=== PATIENT | male | born 1945 | race Caucasian/White ===

== ENCOUNTER 2020-08-24 12:34 | Inpatient (IN) | payer OTHER ==
[~2020-08-24] VITALS: Ht 182.9 cm; Wt 109.0 kg
[2020-08-24 12:41] VITALS: BP 145/89
[2020-08-24 13:19] LABS: HEMATOCRIT 41.2 % (42.0-52.0); HEMOGLOBIN 14.1 gm/dL (14.0-18.0); MCHC 34.3 g/dL (28.0-37.0); MCV 87.4 fL (80.0-100.0); MPV 9.3 fl. (7.2-11.1); NUCLEATED RBCS 0 /100WBC; PLATELET COUNT* 101 thou/uL (150-400); RBC 4.71 mil/uL (4.50-6.00); WBC 15.6 thou/uL (4.0-11.0)
[2020-08-24 13:25] LABS: CALCIUM 8.6 mg/dL (8.5-10.1); CREATININE 1.4 mg/dL (0.6-1.3); POTASSIUM 4.8 mmol/L (3.5-5.1)
[2020-08-24 13:28] LABS: APTT 34.3 Seconds (25.0-31.3); INR 1.2; PROTIME 12.4 Seconds (9.20-11.50)
[2020-08-24 13:29] LABS: ALBUMIN 3.7 g/dL (3.4-5.0); TOTAL BILIRUBIN 1.4 mg/dL (<0.1-1.0); TOTAL PROTEIN 7.4 g/dL (6.4-8.2)
[2020-08-24] MEDS ORDERED: CELEXA 20 MG TA20 MG PO (13:33)
[2020-08-24] MEDS ORDERED: LOPRESSOR50 MG PO (13:34)
[2020-08-24] MEDS ORDERED: PROAIR HFA8.5 GM INH (13:35)
[2020-08-24] MEDS ORDERED: LIPITOR80 MG PO (13:35)
[2020-08-24] MEDS ORDERED: STIOLTO RESPIMAT4 GM INH (13:36)
[2020-08-24] MEDS ORDERED: COMPAZINE10 MG PO (13:36)
[2020-08-24] MEDS ORDERED: FISH OIL 1,001000 M3 PO (13:37)
[2020-08-24] MEDS ORDERED: SUPER THERAVIT1 EACH PO (13:37)
[2020-08-24 13:47] LABS: ABSOLUTE LYMPHOCYTES 0.6 thou/uL (0.8-5.3); ABSOLUTE MONOCYTES 0.2 thou/uL (0.0-1.2); ABSOLUTE NEUTROPHILS 14.8 thou/uL (1.6-8.1); METAMYELOCYTES 2 %; PLATELET ESTIMATE ADEQUATE
[2020-08-24 14:01] LABS: BE -2.7 mmol/L (-2 to +3); PCO2 34.4 mmHg (35.0-45.0); pH 7.408 (7.340-7.450)
[2020-08-24 14:02] LABS: PO2 52.4 mmHg (75.0-100.0)
--- NOTE | 2020-08-24 14:35 | EKG ---
[place] [address] ELECTROCARDIOGRAM REPORT Name: MICHAEL LAWRENCE Room: [place] [address] [facility]#: [id number] Admission: 08/24/20 Attend Phys: Bonita Diaz, Discharge: Date of : 45 Date of Service: 08/24/20 1240 Report #: [id number] THIS REPORT FOR: //name// 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: ALIDA : 1945 Requested By: Bonita Diaz Order Number: [id number] MD: Roderick Francis Measurements Intervals [place] Rate: 103 P: 84 ME: 171 QRS: 111 QRSD: 90 T: -6 QT: 339 QTc: 444 Interpretive Statements Sinus tachycardia Right axis deviation Consider right ventricular hypertrophy Nonspecific ST-T abnormalities inferior leads No previous ECG available for comparison Electronically Signed On 08-24-2020 14:35:42 CDT by Roderick Francis [email or web address] <ELECTRONICALLY SIGNED> By: Roderick Francis MD, [facility] 08/24/20 1435 1240 1240 Roderick Francis MD, [facility] /EPI
[2020-08-24 16:57] VITALS: BP 141/66
[2020-08-24 18:16] LABS: BE -3.2 mmol/L (-2 to +3); PO2 66.2 mmHg (75.0-100.0); pH 7.379 (7.340-7.450)
[2020-08-24 20:03] VITALS: BP 111/58
[2020-08-24 21:00] VITALS: BP 103/55
[2020-08-24 22:00] VITALS: BP 100/51
[2020-08-24 23:00] VITALS: BP 89/48
[2020-08-25] VITALS (22 sets, daily range): BP systolic 94–134; BP diastolic 41–86
[2020-08-25] MEDS ORDERED: ENOXAPARIN100 MG/11 SUBQ (03:24)
[2020-08-25 05:41] LABS: ABSOLUTE LYMPHOCYTES 0.2 thou/uL (0.8-5.3); ABSOLUTE MONOCYTES 0.1 thou/uL (0.0-1.2); ABSOLUTE NEUTROPHILS 12.7 thou/uL (1.6-8.1); BASOPHILS 0.1 %; HEMATOCRIT 36.2 % (42.0-52.0); HEMOGLOBIN 12.5 gm/dL (14.0-18.0); LYMPHOCYTES 1.5 %; MCH 30.3 pg (26.0-34.0); MCHC 34.6 g/dL (28.0-37.0); MCV 87.6 fL (80.0-100.0); MONOCYTES 0.4 %; MPV 9.4 fl. (7.2-11.1); NUCLEATED RBCS 0 /100WBC; PLATELET COUNT* 76 thou/uL (150-400); RBC 4.13 mil/uL (4.50-6.00); RDW-CV 19.1 % (10.5-14.5)
[2020-08-25 06:00] LABS: ALBUMIN 3.1 g/dL (3.4-5.0); CALCIUM 7.6 mg/dL (8.5-10.1); CREATININE 1.3 mg/dL (0.6-1.3); MAGNESIUM 2.3 mg/dL (1.8-2.4); POTASSIUM 4.9 mmol/L (3.5-5.1); TOTAL BILIRUBIN 1.4 mg/dL (<0.1-1.0); TOTAL PROTEIN 6.5 g/dL (6.4-8.2)
[2020-08-25 06:02] LABS: INR 1.3; PROTIME 13.3 Seconds (9.20-11.50)
--- NOTE | 2020-08-25 06:14 | NUR ---
ASSUMED CARE AT 1910H, ON HIFLOW NC AT 6LPM AND NRB MASK WITH O2 SAT AT 90%. PT IS RESTLESS AND IN PAIN AT CHEST TUBE SITE, PRN MED GIVEN. INFORM PULMO REGARDING NO FLACTUATION FROM CHEST TUBE DRAINAGE, STAT CXR DONE WITH NO SIGNIFICANT CHANGES. INCREASED HIFLOW TO 15LPM AND REMOVED MASK. 02 SAT LOW AND CHANGE TO HEATED HIGH FLOW. PULMO AWARE WITH ORDERS MADE AND CARRIED OUT. PT WILL DESAT WHEN MOVING AND RECOVER SLOW. WITH SLIGHT SATURATED DRESSING FROM CHEST TUBE SITE, DRESSING CHANGES. CONTINUE MONITORING AND TOWARDS GOALS.
--- NOTE | 2020-08-25 06:51 | NUR ---
NOTE FROM 08/24/20: PT ADMITTED TO UNIT AT 17:15. O2 SATS IN THE 80'S ON 6LPM. SWITCHED PT TO HFNC AND NRB. PT CHEST TUBE DRESSING WAS FALLING OFF AT TIME OF ARRIVAL. RE-DRESSED CHEST TUBE SITE, STILL NO TIDAL, NO BUBBLING. NO BLEEDING NOTICED AT THAT TIME. WILL CONTINUE TO MONITOR.
[2020-08-25 14:13] LABS: BE -4.7 mmol/L (-2 to +3); PCO2 36.7 mmHg (35.0-45.0); PO2 65.5 mmHg (75.0-100.0); pH 7.357 (7.340-7.450)
[2020-08-25 17:10] LABS: CALCIUM 7.9 mg/dL (8.5-10.1); CREATININE 1.5 mg/dL (0.6-1.3); MAGNESIUM 2.3 mg/dL (1.8-2.4); POTASSIUM 4.8 mmol/L (3.5-5.1)
[2020-08-25 18:06] LABS: ABSOLUTE LYMPHOCYTES 0.2 thou/uL (0.8-5.3); ABSOLUTE MONOCYTES 0.2 thou/uL (0.0-1.2); ABSOLUTE NEUTROPHILS 15.6 thou/uL (1.6-8.1); BASOPHILS 0.1 %; LYMPHOCYTES 1.4 %; MCH 30.1 pg (26.0-34.0); MCHC 34.3 g/dL (28.0-37.0); MCV 87.7 fL (80.0-100.0); MONOCYTES 1.4 %; MPV 9.6 fl. (7.2-11.1); NUCLEATED RBCS 0 /100WBC; PLATELET COUNT* 94 thou/uL (150-400); POLYS 97.1 %; RDW-CV 18.8 % (10.5-14.5); WBC 16.1 thou/uL (4.0-11.0)
[2020-08-26] VITALS (19 sets, daily range): BP systolic 85–130; BP diastolic 41–66
--- NOTE | 2020-08-26 04:18 | NUR ---
ASSUMED CARE AT 1910H, ON HEATED HIFLOW 100% AT 50LPM AND TOLERATED BUT STILL WITH DESATURATION WHEN MOVING OR IN PAIN. NO FEVER AND NO BLEEDING NOTED. HEATED HIFLOW DOWN TO 90%. CHEST TUBE WITH MINIMAL OUTPUT. COMPLAINED OF PAIN, PRN MEDS GIVEN. CONTINUE MONITORING AND TOWARDS GOALS.
--- NOTE | 2020-08-26 12:10 | NUR ---
ASSUMED CARE OF PT AT THIS TIME.
[2020-08-26 13:05] LABS: ABSOLUTE BASOPHILS 0.1 thou/uL (0.0-0.2); ABSOLUTE LYMPHOCYTES 0.3 thou/uL (0.8-5.3); ABSOLUTE MONOCYTES 0.4 thou/uL (0.0-1.2); ABSOLUTE NEUTROPHILS 11.2 thou/uL (1.6-8.1); BASOPHILS 1.2 %; HEMATOCRIT 32.5 % (42.0-52.0); HEMOGLOBIN 11.3 gm/dL (14.0-18.0); LYMPHOCYTES 2.3 %; MCH 30.2 pg (26.0-34.0); MCHC 34.6 g/dL (28.0-37.0); MCV 87.1 fL (80.0-100.0); MPV 8.8 fl. (7.2-11.1); NUCLEATED RBCS 0 /100WBC; PLATELET COUNT* 98 thou/uL (150-400); POLYS 93.5 %; RBC 3.74 mil/uL (4.50-6.00); RDW-CV 18.4 % (10.5-14.5)
[2020-08-26 13:19] LABS: ALBUMIN 3.1 g/dL (3.4-5.0); CALCIUM 7.7 mg/dL (8.5-10.1); CREATININE 1.3 mg/dL (0.6-1.3); POTASSIUM 4.3 mmol/L (3.5-5.1); TOTAL PROTEIN 6.3 g/dL (6.4-8.2)
--- NOTE | 2020-08-26 15:30 | NUR ---
CAME AND TALKED WITH PT TODAY.
--- NOTE | 2020-08-26 15:57 | NUR ---
ENCOURAGED PT TO USE INSENTIVE SPIROMETRY. GETTING UP TO 1000 FIRST COUPLE OF TIMES THEN TO 500 REST OF REPS. PT REFUSED TO COUGH FOR ME HE STATED 'IT HURTS TO MUCH'. ENCOURAGED THE USE OF I.S. SO HE DOESN'T GET PNEUMONIA. PT VERBALIZED UNDERSTANDING.
--- NOTE | 2020-08-26 20:01 | NUR ---
A&OX 4, PWD. ON HEATED HF AT 65% FIO2 AT 45L. PT TOLERATING IT WELL. CHEST TUBE TO -30. 4ML OUT PUT. LUNGS DIMINISHED THOUGHOUT.REGULAR HEART TONES. SR ON MONITOR. INDWELLING SHER CATH INTACT AND PATENT OF CLOUDY CONCENTRATED URINE. 505ML OUT IN SHER. IV LEFT HAND AND LEFT FA INTACT AND PATENT. NO C/O PAIN. HERE FOR SHORT TIME THIS AFTERNOON. OCC. DESAT'S INTO 80'S WHEN TURNED OR WHEN EATING. ENCOURAGED DEEP BREATHING AND SAT'S CAME BACK UP. ALSO HAD TO ENCOURAGE USING I.S. GETTING IT UP TO 1000 A COUPLE OF TIMES THEN 500. WILL CONTINUE WITH PLAN OF CARE.
[2020-08-27] VITALS (23 sets, daily range): BP systolic 81–136; BP diastolic 46–79
--- NOTE | 2020-08-27 05:42 | NUR ---
ASSUMED CARE AT 2010H, ON OPTI FLOW AT 45LPM AND ON 70% AND TOLERATED. STILL WITH EPISODE OF DESATURATION. CHEST TUBE STILL WITH AIR LEAK. COMPLAIN OF PAIN, PRN MED GIVEN. CONTINUE MONITORING AND TOWARDS GAOLS.
[2020-08-27 13:01] LABS: ABSOLUTE LYMPHOCYTES 0.3 thou/uL (0.8-5.3); ABSOLUTE MONOCYTES 0.6 thou/uL (0.0-1.2); ABSOLUTE NEUTROPHILS 12.5 thou/uL (1.6-8.1); BASOPHILS 0.1 %; HEMATOCRIT 35.8 % (42.0-52.0); HEMOGLOBIN 11.8 gm/dL (14.0-18.0); LYMPHOCYTES 2.5 %; MCH 30.1 pg (26.0-34.0); MCHC 32.9 g/dL (28.0-37.0); MCV 91.7 fL (80.0-100.0); MONOCYTES 4.7 %; MPV 8.9 fl. (7.2-11.1); NUCLEATED RBCS 0 /100WBC; PLATELET COUNT* 129 thou/uL (150-400); POLYS 92.7 %; RDW-CV 18.9 % (10.5-14.5); WBC 13.5 thou/uL (4.0-11.0)
[2020-08-27 13:14] LABS: CALCIUM 7.9 mg/dL (8.5-10.1); MAGNESIUM 2.7 mg/dL (1.8-2.4); POTASSIUM 4.5 mmol/L (3.5-5.1)
--- NOTE | 2020-08-27 13:39 | 2DMMODE ---
[place] [address] 2 D/M-MODE ECHOCARDIOGRAM Name: MICHAEL LAWRENCE Room: [address] IN [facility]#: [id number] Admission: 08/24/20 Attend Phys: Bonita Diaz, Discharge: Date of : 45 Date of Service: 08/27/20 1338 Report #: [id number] THIS REPORT FOR: cc: [facility] - Clinic physician unknown [facility] - Clinic physician unknown Arron Kearney MD [facility] ~ APPROVED REPORT Study performed: 08/27/2020 09:50:04 EXAM: Comprehensive 2D, Doppler, and color-flow Echocardiogram Patient Location: In-Patient Room #: [facility] Status: routine BSA: 2.15 HR: 63 bpm BP: 119/65 mmHg Rhythm: NSR Other Information Study Quality: Good Indications Dyspnea 2D Dimensions IVSd: 8.96 (7-11mm) LVOT Diam: 20.84 (18-24mm) LVDd: 44.32 mm PWd: 7.60 (7-11mm) Ascending Ao: 34.50 (22-36mm) LVDs: 23.71 (25-40mm) Aortic Root: 36.94 mm Aortic Valve AoV Peak Lucian.: 0.86 m/s AO Peak Gr.: 2.93 mmHg LVOT Max P.90 mmHg AO Mean Gr.: 1.66 mmHg LVOT Mean P.95 mmHg LVOT Max V: 0.69 m/s AO V2 VTI: 17.29 cm LVOT Mean V: 0.46 m/s KWAN (VTI): 2.98 cm2 LVOT V1 VTI: 15.08 cm Mitral Valve E/A Ratio: 0.78 MV Decel. Time: 236.20 ms MV E Max Lucian.: 0.90 m/[place] [address] 2 D/M-MODE ECHOCARDIOGRAM Name: MICHAEL LAWRENCE Room: [address] IN ..#: [id number] Admission: 08/24/20 Attend Phys: Bonita Diaz, Discharge: Date of : 45 Date of Service: 08/27/20 1338 Report #: [id number] MV PHT: 68.50 ms MVA (PHT): 3.21 cm2 TDI E/Lateral E': 10.00 E/Medial E': 12.86 Medial E' Lucian.: 0.07 m/s Lateral E' Lucian.: 0.09 m/s Pulmonary Valve PV Peak Lucian.: 0.70 m/s PV Peak Gr.: 1.94 mmHg Tricuspid Valve RAP Estimate: 5.00 mmHg TR Peak Gr.: 59.29 mmHg RVSP: 64.00 mmHg PA Pressure: 64.00 mmHg Left Ventricle The left ventricle is normal size. There is normal LV segmental wall motion. There is normal left ventricular wall thickness. Left ventricular systolic function is normal. The left ventricular ejection fraction is within the normal range. LVEF is 55-60%. Grade I - abnormal relaxation pattern. Right Ventricle The right ventricle is normal size. The right ventricular systolic function is normal. Atria Left atrium is mildly dilated. Right atrium is dilated. Aortic Valve Mild aortic valve sclerosis. No aortic regurgitation is present. There is no aortic valvular stenosis. Mitral Valve The mitral valve is normal in structure. There is no mitral valve regurgitation noted. No evidence of mitral valve stenosis. Tricuspid Valve The tricuspid valve is normal in structure. Mild tricuspid regurgitation. estimated pa pressure 65 mm Hg Pulmonic Valve The pulmonary valve is normal in structure. There is no pulmonic [place] [address] 2 D/M-MODE ECHOCARDIOGRAM Name: HOWARDMICHAEL Anne Marie Room: [address]#: [id number] Admission: 08/24/20 Attend Phys: Bonita Diaz, Discharge: Date of : 45 Date of Service: 08/27/20 1338 Report #: [id number] Great Vessels The aortic root is normal in size. IVC is normal in size and collapses >50% with inspiration. Pericardium There is no pericardial effusion. <Conclusion> LVEF is 55-60%. Mild aortic valve sclerosis. Mild tricuspid regurgitation. estimated pa pressure 65 mm Hg <ELECTRONICALLY SIGNED> By: Arron Kearney MD, [facility] 08/27/20 1338 37 37 Arron Kaerney MD, FAC /INF
--- NOTE | 2020-08-27 14:23 | NUR ---
Nutrition: Pt admitted with pneumothorax. Consult for pood intake. Spoke with pt's RN: diet advanced to heart healthy. Pt ate well. Meds: MVI, statin, solumedrol, metoprolol. Albumin 3.1. PMHx noted. Wts in [place] are highly variable. Please reweigh for accuracy. No other nutrition concerns at this time. Consider low nutrition risk.
--- NOTE | 2020-08-27 16:48 | NUR ---
Met with patient and at bedside. Introduced role of CM. Patient admitted for pneumothorax. Patient lives with in a duplex. No stairs inside or outside of home. Patient uses 02 22/09 (5-6L). Patient was independent with ADLs prior to admission. Patient is retired and is still able to drive. [facility] No hx of SNF or rehab. No hx of services, dialysis or infusion therapy. Patient currenly on 45L high flow (70%). Patient desats with activity. Rt chest tube in place at this time. Will need to resume HH at discharge. CM to continue to follow for safe dc planning
--- NOTE | 2020-08-27 18:48 | NUR ---
ASSUMED CARE OF PATIENT AT 0700; NO BM THROUGH MY SHIFT; PATIENT ADVANCED TO HEART HEALTHY DIET AND ATE WELL FOR LUNCH AND DINNER; PT WOULD DESTAT DURING EATING, TALKING, AND POSITION CHANGES BUT WOULD RECOVER QUICKLY. RIGHT CHESTTUBE REMAINS IN PLACE, CHECKED BY SURGERY TODAY AND DOING WELL. ALL ASSESSMENTS COMPLETED CHARTED.
--- NOTE | 2020-08-27 20:33 | CON ---
[address] [address] CONSULTATION Name: MICHAEL LAWRENCE Anne Marie Room: [address] IN .R.#: [id number] Admission: 08/24/20 Attend Phys: Bonita Diaz MD Discharge: Date of : 45 Report #: [id number] THIS REPORT FOR: cc: [facility] - Clinic physician unknown [facility] - Clinic physician unknown Stanley Bear MD ~ DOC #: [id number] Stanley Bear MD DATE OF CONSULTATION: 08/24/2020 Consult requested by . INDICATION FOR CONSULTATION: Pneumothorax/acute on chronic hypoxemic respiratory failure. HISTORY OF PRESENT ILLNESS: This is a 75-year-old gentleman with past medical history is as mentioned below. Information available is limited. The patient does report having had a history of prostate cancer. He also reports that he is on long-term oxygen, at baseline takes around 5-6 liters of oxygen continuous. He has a history of pulmonary emboli, previously was on an oral anticoagulant, from what he is describing this likely Xarelto. The patient still was having thromboembolism despite taking this medication and therefore was admitted recently to the [place] and was switched over to Lovenox 1 mg/kg subQ b.i.d. However, he has a remote history of smoking and is on therapy consistent with COPD. Also, his imaging is consistent with interstitial lung disease. The patient however is not aware of any of these diagnoses. The patient states that he was told that he may have cancer in the lung. Today, the patient developed sudden increase in shortness of breath. He also had chest pain on the right side with respiration and coughing. In addition, he had hemoptysis, there was fresh blood, he did not have mucus. The EMS was called. He was found to be in respiratory distress. The patient's O2 saturation was 74% initially and there were breath sounds absent on the right side. On the chest x-ray, there was tension pneumothorax. proceeded to placing a chest tube on the right side. The patient has had significant improvement in shortness of breath since then; however, he continues to have shortness of breath. The lung is now mostly expanded on subsequent imaging. At the time of my evaluation, the patient was in the Emergency Room this evening, he was saturating 92% on 6 liters nasal cannula. There has been a small amount of discharge from the chest tube, but there was no longer any air leak. The chest tube was on -30 wall suction. He does not have swelling of lower extremities or calf pain. He has not had nausea, vomiting, diarrhea or constipation. Recently, he was afebrile with a temperature of 37.1. He has had some joint pains, which remain at baseline. He has some urinary complaints including frequency, [place] [address] CONSULTATION Name: MICHAEL LAWRENCE Room: [address] IN ..#: [id number] Admission: 08/24/20 Attend Phys: Bonita Diaz MD Discharge: Date of : 45 Report #: [id number] REVIEW OF SYSTEMS: The patient's review of systems for 12 points is negative except as mentioned above. PAST MEDICAL HISTORY: Pulmonary emboli and possible hypercoagulable state as mentioned above. The patient may have had thrombi even being on Xarelto; therefore, is now on Lovenox, prostate cancer stage 4 with possible metastasis to the lung, although I do not see any obvious lung metastasis on his CT as described below, COPD based on the medications that he is on. The patient however is not aware of the diagnosis, interstitial lung disease based on imaging. Again, he is not aware of this either. Chronic hypoxemic respiratory failure, on 6 liters oxygen, continuous, long-term. SOCIAL HISTORY: He has a remote history of smoking. He says he smoked when he was younger, but discontinued several decades ago. No known history of heavy alcohol use or illegal drug use. CURRENT MEDICATIONS: List in [facility] reviewed. HOME MEDICATIONS: List in [facility] reviewed. Also, note that he was on full dose Lovenox and is reported to have taken Lovenox this morning. ALLERGIES: No known drug allergies. FAMILY HISTORY: No pertinent family history. PHYSICAL EXAMINATION: GENERAL: He still was short of breath and did appear to be in some distress at the time of my evaluation and he stated that he was feeling significantly better than when he initially came to the Emergency Room. VITAL SIGNS: He had a pulse of 87 and a blood pressure of 141/66. He was saturating 92% on 6 liters via nasal cannula, afebrile with a temperature of 37.1. HEENT: Head is normocephalic and atraumatic. Pupils equal, reactive. No throat erythema. Narrow airway. No thrush in throat. NECK: Does not show raised JVP, asymmetry, mass or lymph nodes. CHEST: Symmetrical expansion on inspection and evaluation. On auscultation, breath sounds are bilaterally decreased equal. Occasional rales at bilateral bases. There is a chest tube in place in the right side -30 suction, no air leak in the chest tube, small amount of discharge. HEART: Regular, no murmur. ABDOMEN: Soft and nontender. EXTREMITIES: Lower extremities, no edema, no calf tenderness. SKIN: [place] [address] CONSULTATION Name: MICHAEL LAWRENCE Anne Marie Room: [address] IN .R.#: [id number] Admission: 08/24/20 Attend Phys: Bonita Diaz MD Discharge: Date of : 45 Report #: [id number] NEUROLOGIC: Moves all extremities bilaterally equally and spontaneously with no focal deficit identified. IMAGING DATA: CT chest is reviewed, shows a small pulmonary embolus. There are findings consistent with interstitial lung disease. There are also bilateral basilar infiltrates. LABORATORY DATA: The patient's lab work is in [facility], this is reviewed. Creatinine of 1.4 noted. We do not have his baseline creatinine available. Arterial blood gas consistent with acute hypoxemic respiratory failure. COVID-19 screen negative. I ordered an MRSA swab which is pending. ASSESSMENT AND PLAN: 1. Acute on chronic hypoxemic respiratory failure. We will continue to titrate oxygen. I was just called from the ICU and was told that he is on a nonrebreather mask as well as 6 liters oxygen now. However, the patient is continuing to move and also has been receiving morphine for pain control. It is therefore not fully established whether the patient needs high flow oxygen. We will try to titrate down oxygen if possible. We will also repeat a chest x-ray at this time. Considering pneumothorax, we will try to avoid use of BiPAP; however, if the lung remains expanded and the patient is significantly hypoxemic, then cautiously this could be considered. 2. Tension pneumothorax. There is no longer any leak in the chest tube. Therefore, we will repeat a chest x-ray and verify if the lung is still expanded. If the lung is still expanded, then we will only watch for now and keep the chest tube to wall suction. In case the pneumothorax is reoccurring, then I will consider consulting surgery. 3. Hemoptysis/acute pulmonary emboli/possible hypercoagulable state. He stated that he did take Lovenox this morning. Holding off on Lovenox this evening is low risk. I would recommend holding off. We will reassess this tomorrow. I did have venous Dopplers performed and these are negative. Whenever his hemoptysis subsides, we will plan on restarting anticoagulation. In case he still remains high risk, I may consider starting IV heparin; therefore, considering Lovenox again as it is shorter acting. 4. Pulmonary infiltrates. I agree with Zosyn and I agree with doxycycline. I will send off a nasal swab for MRSA. If he coughs up sputum, I would recommend sending it for ; however, I would not encourage coughing at this time. I considered giving him more MRSA coverage, but at this time, the patient has risk factors for administration of both vancomycin as well as linezolid and therefore, I decided to hold off, we will consider if he fails to improve. 5. Stage 4 prostate cancer. The patient states that he has a history of this. He says that he may have a cancer in the lung. According to what he had been told, I do not identify any obvious mass on his CT chest. Regardless, we will try to obtain further records in this regard. [address] [place] [address] CONSULTATION Name: MICHAEL LAWRENCE Room: M.007-P ADM IN M.R.#: [id number] Admission: 08/24/20 Attend Phys: Bonita Diaz MD Discharge: Date of : 45 Report #: [id number] 6. Chronic obstructive pulmonary disease. He has a remote history of smoking. His medications are consistent with a history of COPD. I agree with nebulized bronchodilators as well as budesonide as currently ordered. I will go ahead and give him 3 doses of Solu-Medrol. He may need more Solu-Medrol tomorrow. 7. Interstitial lung disease. The CT chest is consistent with this. The patient does not appear to be aware of the diagnosis. 8. Renal insufficiency, received IV dye today. We will keep him well hydrated today. We will reassess tomorrow. He is on IV fluids, they are continued. 9. Deep venous thrombosis prophylaxis. See discussion as above. We will also recommend SCDs. 10. C. difficile prophylaxis. We will give him Lactinex. 11. Gastrointestinal prophylaxis, Protonix. 12. The patient is critically ill at this time. Total time spent providing critical care to this patient today exceeds 40 minutes. MD LOTUS Shay/KAYLEE/GRAYSON <ELECTRONICALLY SIGNED> By: Stanley Bear MD 08/27/202032 58 0347Alupe Bear MD /ada
[2020-08-28] VITALS (19 sets, daily range): BP systolic 100–150; BP diastolic 50–85
[2020-08-28 03:48] LABS: HEMATOCRIT 34.3 % (42.0-52.0); HEMOGLOBIN 11.8 gm/dL (14.0-18.0); MCH 29.7 pg (26.0-34.0); MCHC 34.5 g/dL (28.0-37.0); MPV 8.9 fl. (7.2-11.1); NUCLEATED RBCS 0 /100WBC; PLATELET COUNT* 145 thou/uL (150-400); RBC 3.97 mil/uL (4.50-6.00); RDW-CV 18.3 % (10.5-14.5); WBC 14.9 thou/uL (4.0-11.0)
[2020-08-28 04:09] LABS: MCV 86.3 fL (80.0-100.0)
--- NOTE | 2020-08-28 04:16 | NUR ---
ASSUMED CARE AT 1900H, ON HEATED HIFLOW AT 45LPM 80%. ENCOURAGE TO DO DEEP BRETHING AND USE SI. NO FEVER AND NO BLEEDING. CHEST TUBE STILL WITH AIR LEAK. CONTINUE MONITORING TOWARDS GOALS.
--- NOTE | 2020-08-28 04:19 | NUR ---
PT REQUESTING FOR SLEEPING PILL FOR TONIGHT.
[2020-08-28 04:26] LABS: ALBUMIN 3.2 g/dL (3.4-5.0); CALCIUM 7.9 mg/dL (8.5-10.1); CREATININE 1.2 mg/dL (0.6-1.3); POTASSIUM 4.3 mmol/L (3.5-5.1); TOTAL PROTEIN 6.2 g/dL (6.4-8.2)
[2020-08-28 06:09] LABS: ABSOLUTE MONOCYTES 0.6 thou/uL (0.0-1.2); ABSOLUTE NEUTROPHILS 13.3 thou/uL (1.6-8.1)
[2020-08-28 06:10] LABS: ANISOCYTOSIS 1+; PLATELET ESTIMATE DECREASED
--- NOTE | 2020-08-28 06:31 | NUR ---
PT KEPT ON DESATING, 02 TITRATED. PT REQUESTING FOR SLEEPING PILL TONIGHT. LATEST FIO2 AT 90% AT 55LPM.
--- NOTE | 2020-08-28 09:52 | NUR ---
ICU Rounds: Patient currently on hi-flow 85% FiO2 and 55L. Patient desats at rest. R chest tube. [facility]. Home O2 5-6L. Will continue to follow for safe dc planning
--- NOTE | 2020-08-28 19:23 | NUR ---
RESUMED CARE AT 0700; PT RESTED IN RECLINER MOST OF DAY; ATE REALLY WELL; 1 BM; WITH HIM MOST OF SHIFT; ALL ASSESSMENTS COMPLETED CHARTED.
[2020-08-29] VITALS (25 sets, daily range): BP systolic 94–153; BP diastolic 33–104
[2020-08-29 03:41] LABS: CALCIUM 8.1 mg/dL (8.5-10.1); CREATININE 1.2 mg/dL (0.6-1.3); MAGNESIUM 2.5 mg/dL (1.8-2.4)
[2020-08-29 04:08] LABS: ABSOLUTE LYMPHOCYTES 0.3 thou/uL (0.8-5.3); ABSOLUTE MONOCYTES 0.7 thou/uL (0.0-1.2); ABSOLUTE NEUTROPHILS 13.4 thou/uL (1.6-8.1); BASOPHILS 0.1 %; HEMATOCRIT 34.7 % (42.0-52.0); HEMOGLOBIN 11.9 gm/dL (14.0-18.0); MCH 29.5 pg (26.0-34.0); MCHC 34.3 g/dL (28.0-37.0); MCV 86.2 fL (80.0-100.0); MONOCYTES 5.1 %; NUCLEATED RBCS 0 /100WBC; PLATELET COUNT* 152 thou/uL (150-400); POLYS 92.8 %; RBC 4.02 mil/uL (4.50-6.00); RDW-CV 18.2 % (10.5-14.5); WBC 14.4 thou/uL (4.0-11.0)
--- NOTE | 2020-08-29 10:21 | NUR ---
Left vm this morning for the office of [facility] ([place]) to confirm that HH can be resumed at discharge and if not, if patient will need HH that [facility]. [facility] [phone]
--- NOTE | 2020-08-29 16:04 | NUR ---
ICU ROUNDS: PT PRESENTS WITH UNSTEADY GAIT, NEED 2X ASSIST FOR TRANSFER. 55L HIFLOW. LEAKS AIR FROM CHEST TUBE.
[2020-08-30] VITALS (23 sets, daily range): BP systolic 102–128; BP diastolic 42–89
--- NOTE | 2020-08-30 06:35 | NUR ---
ASSESSMENTS CHARTED. PATIENT WAS UP TO THE RECLINER ONCE THIS SHIFT. CHEST TUBE REMAINS IN PLACE. NO ACUTE EVENTS OVERNIGHT.
--- NOTE | 2020-08-30 09:47 | NUR ---
ICU Rounds: Patient was recently discharge from the [place] [facility] on 08/23 and was setup with [facility] but they were unable to see him since he admitted to [facility] on 08/24. Spoke to [facility] and they stated they can resume his HH if needed. [facility] stated that a new referral will need to be faxed to [phone]. Patient has Medicare secondary, so per [place] his HH can be billed through his Medicare benefits. [facility] accepts Medicare insurance. [place] also stated that once patient is discharged the patients PCP office will need a copy of the dc summary and med list. All items can be faxed to [facility] (PH: [phone]; ). [facility]
[2020-08-31] VITALS (12 sets, daily range): BP systolic 93–127; BP diastolic 56–71
--- NOTE | 2020-08-31 05:43 | NUR ---
ASSUMED CARE AT 1910H, ON HEATED HIFLOW AT 55LPM 70% AND TITRATED. STILL WITH CHEST TUBE AIRLEAK. PT COUGHING OUT BROWM/ROSE THICK SPUTUM. STILL WITH DESATURATION WHEN COUGHING OR MOVING, O2 % TITRATED. COMPLAINED OF PAIN, PRN MEDS GIVEN. CONTINUE MONITORING AND TOWARDS GOALS. HEATED HIFLOW AT 80%.
[2020-08-31 12:37] LABS: HEMATOCRIT 34.8 % (42.0-52.0); HEMOGLOBIN 12.2 gm/dL (14.0-18.0); MCH 30.1 pg (26.0-34.0); MCHC 34.9 g/dL (28.0-37.0); MCV 86.2 fL (80.0-100.0); MPV 8.3 fl. (7.2-11.1); NUCLEATED RBCS 0 /100WBC; PLATELET COUNT* 184 thou/uL (150-400); RBC 4.04 mil/uL (4.50-6.00); RDW-CV 17.9 % (10.5-14.5); WBC 13.9 thou/uL (4.0-11.0)
[2020-08-31 12:52] LABS: ALBUMIN 3.5 g/dL (3.4-5.0); CALCIUM 7.7 mg/dL (8.5-10.1); CREATININE 1.1 mg/dL (0.6-1.3); POTASSIUM 3.7 mmol/L (3.5-5.1); TOTAL BILIRUBIN 1.3 mg/dL (<0.1-1.0); TOTAL PROTEIN 6.4 g/dL (6.4-8.2)
[2020-08-31 13:51] LABS: ABSOLUTE LYMPHOCYTES 1.3 thou/uL (0.8-5.3); ABSOLUTE MONOCYTES 1.1 thou/uL (0.0-1.2); ABSOLUTE NEUTROPHILS 11.5 thou/uL (1.6-8.1); ATYPICAL LYMPHS 4 %; LARGE PLATELETS OCCASIONAL; MACROCYTES 1+; PLATELET ESTIMATE ADEQUATE
--- NOTE | 2020-08-31 15:54 | NUR ---
ICU Rounds: Plan is to transfer patient today for higher level of care for Chest tube air leak. [facility] requested to go to [facility]. [facility] has no bed availability until Thursday. Faxed referral packet to [facility] transfer team. [email or web address], [facility] and [facility] are full. [facility] and [facility] are reviewing the case at this time. Nursing and patient updated on plan of care. If patient discharges today nursing is aware of the need to setup ambulance transporation. Family updated. CM will follow up with nursing once an answer is received.
--- NOTE | 2020-08-31 17:52 | NUR ---
RESUMED CARE AT 1400. CHEST TUBE DRESSING CHANGED THE DSG WAS SOAKED WITH BLOODY SECRETIONS. [facility]. PLAN TO TRANSFER TO [facility], ICU 10.
--- NOTE | 2020-08-31 18:50 | NUR ---
PT LEFT THE UNIT AT 1843 ON NRM AT 15L/MIN. [facility] NOTIFIED.
== END 2020-08-31 18:42 | DRG 177 ==
LOC: EDBD 12:34 → M.ERS 12:34 → M.ICU 13:40 → M.TBA-ER 13:40 → M.ICU 17:06
PROVIDERS: Emergency Medicine; Internal Medicine Critical Care Medicine; ADMIT Internal Medicine; ATTEND Internal Medicine
PROC: 0W9930Z Drainage of Right Pleural Cavity with Drainage Device, Percutaneous Approach (ICD-10-PCS; principal; 2020-08-24)
PROC: 5A0955A Assistance with Respiratory Ventilation, Greater than 96 Consecutive Hours, High Flow/Velocity Cannula (ICD-10-PCS; principal; 2020-08-24)
DX: J15.6 Pneumonia due to other Gram-negative bacteria (principal); J93.0 Spontaneous tension pneumothorax; J96.21 Acute and chronic respiratory failure with hypoxia; I26.99 Other pulmonary embolism without acute cor pulmonale; N17.0 Acute kidney failure with tubular necrosis; R04.2 Hemoptysis; E87.1 Hypo-osmolality and hyponatremia; D68.59 Other primary thrombophilia; Z20.822 Contact with and (suspected) exposure to COVID-19; D72.829 Elevated white blood cell count, unspecified; Z85.46 Personal history of malignant neoplasm of prostate; Z85.118 Personal history of other malignant neoplasm of bronchus and lung; Z79.899 Other long term (current) drug therapy